=== PATIENT | female | born 1960 | race Caucasian/White ===

== ENCOUNTER → 2016-09-02 | Outpatient (CLI) | payer OTHER ==
[~2016-09-02] MED LIST: BUPROPION XL300 MG PO; CELEXA20 MG PO; L-THYROXINE PO; LISINOPRIL20 MG PO; TRIAMTERENE-HCT1 TA6 PO
--- NOTE | ~2016-09-02 | MY11 ---
[facility] A Service of [facility] & [facility] RADIOLOGY TEXT RESULTS PATIENT: RAMAN BLEDSOE LOCATION: [facility] : 62 UNIT #: [id number] AGE: [address]: Lupe Gonzalez MD SEX: F ORDER DR: [id number] [facility] [address] [place], [place] [address] [id number] O MR#: [id number] Acc #: [id number] NAME: RAMAN BLEDSOE : 1960 SEX: F STUDY DATE/TIME: 09/02/2016 17:01 UNIT: [facility] ROOM: STUDY DESCRIPTION: MY Mammogram Screening Dig Christopher Attending Physician: Lupe Gonzalez M.D. Referring Physician: Lupe Gonzalez M.D. Ordering Physician: Lupe Gonzalez M.D. Primary Care Physician: Lupe Gonzalez M.D. MEDICAL IMAGING REPORT This report is preliminary unless electronic signature is present EXAM Digital screening mammogram, 09/02/2016, [facility]. HISTORY 55-year-old woman. No risk elevation. Annual screen. COMPARISON Mammograms date to 04/07/2007 with most recent 04/04/2015. FINDINGS Digital imaging of each breast was completed utilizing screening protocol. Review includes FDA-approved CAD device. Breast parenchyma is heterogeneously dense and partially fatty replaced with nodular parenchymal pattern again noted, bilateral subareolar locations. There is associated duct ectasia in each breast. Occasional benign calcifications are noted as well. These are slightly dominant in the left breast. There are no suspicious mass characteristics and microcalcifications have benign appearance. I see no interval occurring architectural disturbance. IMPRESSION Benign mammogram. Annual screening recommended. Patients over the age of 40 are entered into a reminder system with target due date for the next mammogram. A result letter will also be sent to the patient. BIRADS: 2 Benign finding. Dictated by... Juan José Evangelista M.D. THIS IS AN ELECTRONICALLY VERIFIED REPORT Juan José Evangelista M.D. at 09/03/2016 11:28 AM JBB/kelly STS. [facility] A Service of [facility] & [facility] RADIOLOGY TEXT RESULTS PATIENT: RAMAN BLEDSOE LOCATION: [facility] #: [id number] : 62 UNIT #: [id number] AGE: [address]: Lupe Gonzalez MD SEX: F ORDER DR: TD: 09/03/2016 10:25 JOB #: [id number] MEDICAL IMAGING REPORT Page 1 of 1 COPY
== END | disposition home or self-care (01) ==
LOC: CWCC 16:35
DX: Z12.31 Encounter for screening mammogram for malignant neoplasm of breast (principal)
CPT/HCPCS: G0202